=== PATIENT | female | born 1965 | race Caucasian/White ===

== ENCOUNTER 2020-01-18 17:53 | Emergency (ER) | payer OTHER ==
[~2020-01-18] VITALS: Ht 160 cm; Wt 54.0 kg
[2020-01-18 17:59] VITALS: BP 137/81
== END 2020-01-18 19:25 | disposition home or self-care (01) ==
LOC: ER 17:54
DX: M79.641 Pain in right hand (principal); Z79.2 Long term (current) use of antibiotics
CPT/HCPCS: 29125; 99283